=== PATIENT | male | born 2005 | race African-American/Black ===

== ENCOUNTER 2024-09-05 16:35 | Day surgery (SDC) | payer BC ==
[2024-09-05] MEDS ORDERED: Bupivacaine/Epinephrine 0.25% 30 ML VIAL ONE (17:22)
[2024-09-05] MEDS ORDERED: Ondansetron PF 4 MG/2 ML Vial ONE ×2 (17:24→17:31)
[2024-09-05] MEDS ORDERED: PROPOFOL 20 ML ONE (17:29)
[2024-09-05] MEDS ORDERED: fentaNYL 50 mcg/mL 1 mL Vial ONE ×3 (17:29→19:15)
[2024-09-05] MEDS ORDERED: Midazolam HCl 2 mg/2 ml Vial ONE (17:29)
[2024-09-05] MEDS ORDERED: cefOXitin 2 GM in Sodium Chloride 0.9% 100 ML IVPB SCH (17:30)
[2024-09-05] MEDS ORDERED: ePHEDrine Sulfate 50 MG/10 ML VIAL ONE (17:31)
[2024-09-05] MEDS ORDERED: PHENYLEPHRINE-NS 100 MCG/ML 10 ML SYRINGE ONE (17:31)
[2024-09-05] MEDS ORDERED: Dexamethasone 4 mg/ml Vial ONE (17:31)
[2024-09-05] MEDS ORDERED: Lidocaine 2% PF 100 mg/5 ml Syringe ONE (17:32)
[2024-09-05] MEDS ORDERED: Rocuronium Bromide 10 MG/ML (10ML VIAL) ONE (17:42)
[2024-09-05] MEDS ORDERED: SUCCINYLCHOLINE/SOD CL,ISO/PF 200 MG/10 ML SYRINGE FS ONE (17:42)
[2024-09-05] MEDS ORDERED: SUGAMMADEX SODIUM 200 MG/2 ML VIAL ONE (17:43)
[2024-09-05] MEDS ORDERED: diphenhydrAMINE 50 MG/ML VIAL ONE (18:14)
[2024-09-05] MEDS ORDERED: Meperidine HCl/PF 25 MG (1 mL) VIAL ONE (19:17)
[2024-09-05] MEDS ORDERED: Ondansetron ODT 4 MG TAB ONE (19:38)
[2024-09-05] MEDS ORDERED: traMADol HCl 50 MG TAB ONE (19:38)
== END 2024-09-05 19:52 | disposition home or self-care (01) ==
LOC: CSHSDC/OP 16:35 → CSHER/OP 16:35
PROVIDERS: ATTEND Surgery
PROC: 0DTJ4ZZ Resection of Appendix, Percutaneous Endoscopic Approach (ICD-10-PCS; principal; 2024-09-05)
DX: K35.80 Unspecified acute appendicitis (principal); F90.9 Attention-deficit hyperactivity disorder, unspecified type; J45.909 Unspecified asthma, uncomplicated; Z90.89 Acquired absence of other organs; Z98.890 Other specified postprocedural states; Z88.1 Allergy status to other antibiotic agents; Z91.018 Allergy to other foods; Z88.8 Allergy status to other drugs, medicaments and biological substances; Z79.51 Long term (current) use of inhaled steroids; Z79.899 Other long term (current) drug therapy
CPT/HCPCS: 88304; A4649; J0694; J1100; J1200; J2003; J2175; J2250; J2405; J2704; J3010; Q0162

== ENCOUNTER 2025-04-23 15:03 | Emergency (ER) | payer BC | END 2025-04-23 16:27 | disposition home or self-care (01) | LOC: CSHERS 15:03 | DX: G51.0 Bell's palsy (principal) | CPT/HCPCS: 70450 ==